=== PATIENT | male | born 2000 | race Caucasian/White ===

== ENCOUNTER 2022-05-28 19:20 | Observation (INO) ==
[2022-05-28 20:36] LABS: Basophils # (auto) 0.07 K/uL (0-0.2); Basophils % (auto) 0.6 %; Eosinophils # (auto) 0.17 K/uL (0-0.50); Eosinophils % (auto) 1.6 %; Hematocrit (blood only) 36.1 % (40.1-51.0); Immature Granulocytes # (auto) 0.06 K/uL (0.00-0.02); Immature Granulocytes % (auto) 0.5 %; Lymphocytes % (auto) 18.3 %; Mean Corpuscular Hemoglobin 30.8 pg (25.0-34.0); Mean Corpuscular Hgb Conc 33.2 g/dL (32.0-36.0); Mean Corpuscular Volume 92.6 fL (80.0-100.0); Mean Platelet Volume 9.7 fL (9.4-12.4); Monocytes # (auto) 1.33 K/uL (0.24-0.82); Monocytes % (auto) 12.2 %; Neutrophils # (auto) 7.29 K/uL (1.4-6.5); Neutrophils % (auto) 66.8 %; Platelet Count 530 K/uL (130-400); RDW Coefficient of Variation 13.3 % (11.5-14.5); RDW Standard Deviation 45.1 fL (36.4-46.3); White Blood Count 10.92 K/ul (4.8-10.8)
[2022-05-28 21:06] LABS: Potassium 4.1 mmol/L (3.5-5.1)
[2022-05-28 21:09] LABS: Alanine Aminotransferase 69 U/L (7-52); Albumin Globulin Ratio 1.6 (0.9-2); Albumin Level 4.6 gm/dl (3.4-5.0); Alkaline Phosphatase 52 U/L (34-104); Anion Gap 7 (3-11); BUN Creatinine Ratio 39.1 (10-20); Bilirubin,Total 1.7 mg/dl (0.2-1.0); Blood Urea Nitrogen 25 mg/dl (6-23); Calcium 9.8 mg/dl (8.5-10.1); Carbon Dioxide 29 mmol/L (21-32); Chloride 100 mmol/L (98-107); Creatinine Clr Calc Pharmacy 158.9 ml/min; Est GFR (African American) > 150.0 ml/min; Est GFR (Non-African American) 141.9 ml/min; Globulin 2.9 gm/dl (2.5-4.0); Glucose 86 mg/dl (70-99(Fasting)); Lipase 16 U/L (11-82); Sodium 136 mmol/L (136-145); Total Protein 7.5 gm/dl (6.0-8.3)
[2022-05-28] MEDS ORDERED: KETOROLAC TROMETHAMINE 15 MG/ML VIAL IV ONE (22:50)
--- NOTE | 2022-05-28 23:04 | Emergency Department Note ---
Impression & Plan Hemoperitoneum, Abdominal pain, S/P appendectomy ED Provider Note CHIEF COMPLAINT: Abdominal pain HISTORY OF PRESENT ILLNESS: Bala Browning is a 21 year old male with history recent appendectomy with Dr. Quiroz in [place] who presents to the Emergency Department for evaluation of intermittent pains to his bilateral lower abdominal quadrant, R>L, which has been worsening over the past 5 days. Currently, he rates his discomfort as a 3/10 which intermittently becomes much more severe, especially when sitting up and attempting to walk. He also notes increased pain after eating as well. The patient has been taking ibuprofen with little improvement of his symptoms. He was prescribed hydrocodone but has not been taking this as it makes him feel sick to his stomach. The patient does state that he has felt nauseous x 2 days, no vomiting. He has continued to have normal bowel movements but does state that he has been more "gassy". The patient otherwise denies fevers/chills, chest pain, or respiratory difficulties. No urinary symptoms. As the patient was concerned for his worsening pains, he presents to the ED for more immediate evaluation this evening. REVIEW OF SYSTEMS: 10 systems were reviewed and were negative unless otherwise stated in HPI as above PHYSICAL EXAM: VITALS: Vitals are noted on the nurse's note and reviewed by myself. Vital signs stable. General: Resting in bed, appears uncomfortable but no acute distress HEENT: Normocephalic, PERRL, EOMI, mucous membranes moist, oropharynx clear without erythema, edema or exudates Neck: Supple, non-tender ROM intact without pain Resp: Good inspiratory effort on room air, lung sounds clear bilaterally CV: Regular rate and rhythm, normal S1-S2, peripheral pulses palpated Back: No tenderness to palpation Abd: Soft, non-distended, endoscopic sites appear to be healing well without surrounding erythema, edema or abnormal drainage. Exquisitely tender over the bilateral lower abdominal quadrants and suprapubic region with guarding, no rebound or rigidity MSK: Moving all extremities, though movement of his legs worsens his abdominal pain Integumentary: Appears mildly pale but otherwise warm and dry, no appreciable rash Neuro: Awake, alert and oriented x 3, interacting and answering questions appropriately Differential diagnosis includes postoperative pain, abscess, bowel perforation, bowel obstruction, surgical complication, among others were considered. EMERGENCY DEPARTMENT COURSE: Physical exam and history were performed. Nursing triage notes, EMR, and medication list were personally reviewed. Patient is a 21 year old male with history recent appendectomy with Dr. Quiroz in [place] who presents to the Emergency Department for evaluation of intermittent pains to his bilateral lower abdominal quadrant, R>L, which has been worsening over the past 5 days. Additional history as described above. See physical exam as noted above. The patient was offered medication. IV access was established and he was given Toradol 15 mg. Labs were obtained and reviewed by myself as below. Of note, leukocytosis with a WBC of 10.92. Mild anemia with hemoglobin 12.0. Electrolytes WNL. Renal ind ices stable. LFTs nondiagnostic. Lipase WNL. Urinalysis was obtained and showed trace protein, trace blood, trace leukocyte esterase, 1030 WBCs. Likely contaminated with >[address] abdomen/pelvis was obtained and reviewed by radiologist myself as below. There was moderate amount of complex fluid seen within the abdomen and pelvis concerning for hemoperitoneum. Trace pneumoperitoneum within the upper abdomen, likely due to recent appendectomy. Asymmetric thickening within the left anterolateral abdominal wall with a heterogeneous collection measuring 4.2 x 1.8 cm favoring an intramuscular hematoma. I did call and speak with Tio Álvarez PA-C of general surgery regarding the patient's case. After he evaluated the patient at bedside, he plans to admit him for further evaluation and management as necessary. Please see his dictation for additional plan and disposition thereafter. The patient verbalizes understanding and agreement with the treatment plan as above. The chart was completed utilizing [employer] Speech Voice Recognition Software. Grammatical errors, random word insertions, pronoun errors, and incomplete sentences are an occasional consequence of this system due to software limitations, ambient noise, and hardware issues. Any formal questions or concerns about the content, text, or information contained within the body of this dictation should be directly addressed to the provider for clarification. Past Med/Surg History Medical History Anxiety Depression Surgical History (Updated 05/29/22 @ 08:09 by Sheila Garcia PA-C) Hx of appendectomy Social History Smoking Status: Current every day smoker Tobacco Type: E-cigarettes / Vaping Second Hand Exposure: No; Do You Dip or Chew Tobacco: No; Tobacco Cessation Education Requested by Patient: No Hx Alcohol Use: No Hx Substance Use: No Preferred Language: Indian Communication Ability: Effective Mental Health Tech Required: No Beliefs That Will Affect Care: None Current Living Situation: Family Other Information That Helps Us Care for You: No Feels Safe at Home: Yes Safety Concerns: Feels Safe At This Time Assistive Devices: None Allergies Allergies Allergy/AdvReac Type Severity Reaction Status Date / Time No Known Allergies Allergy Unverified 05/28/22 23:36 Home Meds Home Medications Medication Instructions Recorded Confirmed amoxicillin 875 mg-potassium 1 tab PO Q12 05/28/22 05/28/22 clavulanate 125 mg tablet citalopram 20 mg tablet 20 mg PO QAM 05/28/22 05/28/22 trazodone 50 mg tablet 50 mg PO HS 05/28/22 05/28/22 Results & Data (ED) Vital Signs Vital Signs - 24 hr 05/28/22 19:34 05/28/22 22:20 05/28/22 22:20 Temperature 36.6 C 36.5 C Temperature Source Temporal Artery Scan Oral Pulse Rate 126 H 89 Pulse Rate [Apical] 88 Pulse Rate from SpO2 Sensor Pulse Rhythm Regular Pulse Rhythm [Apical] Regular Pulse Strength [Apical] Normal Respiratory Rate 18 14 14 Respiratory Effort / Characteristics Non-Labored Spontaneous Non-Labored Respiratory Depth Normal Normal Respiratory Pattern Regular Blood Pressure 124/75 Blood Pressure [Left Arm] 113/64 Blood Pressure Mean 91 Blood Pressure Mean [Left Arm] 80 Blood Pressure Position [Left Arm] Lying Pulse Oximetry 97 99 100 Oxygen Delivery Method Room Air Room Air Room Air Sepsis Recent Fever Within 48 Hours No Sepsis New/Unexplained Change in Mental Status No Sepsis Action Taken by Nursing No Action Required 05/28/22 22:15 05/28/22 22:20 05/28/22 22:30 Temperature Temperature Source Pulse Rate 87 79 Pulse Rate [Apical] Pulse Rate from SpO2 Sensor 86 79 Pulse Rhythm Pulse Rhythm [Apical] Pulse Strength [Apical] Respiratory Rate 17 25 H Respiratory Effort / Characteristics Respiratory Depth Respiratory Pattern Blood Pressure 113/64 Blood Pressure [Left Arm] Blood Pressure Mean 80 Blood Pressure Mean [Left Arm] Blood Pressure Position [Left Arm] Pulse Oximetry 97 98 Oxygen Delivery Method Sepsis Recent Fever Within 48 Hours Sepsis New/Unexplained Change in Mental Status Sepsis Action Taken by Nursing 05/28/22 22:30 05/28/22 22:40 05/28/22 22:50 Temperature Temperature Source Pulse Rate 87 93 H 95 H Pulse Rate [Apical] Pulse Rate from SpO2 Sensor 80 97 H 91 H Pulse Rhythm Pulse Rhythm [Apical] Pulse Strength [Apical] Respiratory Rate 17 18 20 Respiratory Effort / Characteristics Respiratory Depth Respiratory Pattern Blood Pressure Blood Pressure [Left Arm] Blood Pressure Mean Blood Pressure Mean [Left Arm] Blood Pressure Position [Left Arm] Pulse Oximetry 100 97 97 Oxygen Delivery Method Sepsis Recent Fever Within 48 Hours Sepsis New/Unexplained Change in Mental Status Sepsis Action Taken by Nursing 05/29/22 01:16 05/28/22 23:00 05/28/22 23:00 Temperature 37.3 C Temperature Source Oral Pulse Rate 84 Pulse Rate [Apical] Pulse Rate from SpO2 Sensor 82 Pulse Rhythm Pulse Rhythm [Apical] Pulse Strength [Apical] Respiratory Rate 20 Respiratory Effort / Characteristics Respiratory Depth Respiratory Pattern Blood Pressure 120/76 Blood Pressure [Left Arm] Blood Pressure Mean 90 Blood Pressure Mean [Left Arm] Blood Pressure Position [Left Arm] Pulse Oximetry 100 Oxygen Delivery Method Sepsis Recent Fever Within 48 Hours Sepsis New/Unexplained Change in Mental Status Sepsis Action Taken by Nursing 05/28/22 23:10 05/28/22 23:20 05/28/22 23:30 Temperature Temperature Source Pulse Rate 89 75 Pulse Rate [Apical] Pulse Rate from SpO2 Sensor 87 77 Pulse Rhythm Pulse Rhythm [Apical] Pulse Strength [Apical] Respiratory Rate 17 22 Respiratory Effort / Characteristics Respiratory Depth Respiratory Pattern Blood Pressure 122/77 Blood Pressure [Left Arm] Blood Pressure Mean 92 Blood Pressure Mean [Left Arm] Blood Pressure Position [Left Arm] Pulse Oximetry 98 99 Oxygen Delivery Method Sepsis Recent Fever Within 48 Hours Sepsis New/Unexplained Change in Mental Status Sepsis Action Taken by Nursing 05/28/22 23:30 05/28/22 23:40 05/28/22 23:50 Temperature Temperature Source Pulse Rate 84 83 99 H Pulse Rate [Apical] Pulse Rate from SpO2 Sensor 81 83 94 H Pulse Rhythm Pulse Rhythm [Apical] Pulse Strength [Apical] Respiratory Rate 16 17 16 Respiratory Effort / Characteristics Respiratory Depth Respiratory Pattern Blood Pressure Blood Pressure [Left Arm] Blood Pressure Mean Blood Pressure Mean [Left Arm] Blood Pressure Position [Left Arm] Pulse Oximetry 99 98 97 Oxygen Delivery Method Sepsis Recent Fever Within 48 Hours Sepsis New/Unexplained Change in Mental Status Sepsis Action Taken by Nursing 05/29/22 00:00 05/29/22 00:00 05/29/22 00:41 Temperature Temperature Source Pulse Rate 88 79 Pulse Rate [Apical] Pulse Rate from SpO2 Sensor 77 76 Pulse Rhythm Pulse Rhythm [Apical] Pulse Strength [Apical] Respiratory Rate 19 22 Respiratory Effort / Characteristics Respiratory Depth Respiratory Pattern Blood Pressure 114/62 Blood Pressure [Left Arm] Blood Pressure Mean 79 Blood Pressure Mean [Left Arm] Blood Pressure Position [Left Arm] Pulse Oximetry 97 98 Oxygen Delivery Method Sepsis Recent Fever Within 48 Hours Sepsis New/Unexplained Change in Mental Status Sepsis Action Taken by Nursing 05/29/22 00:41 05/29/22 00:50 05/29/22 01:13 Temperature Temperature Source Pulse Rate 80 Pulse Rate [Apical] Pulse Rate from SpO2 Sensor 75 Pulse Rhythm Pulse Rhythm [Apical] Pulse Strength [Apical] Respiratory Rate 22 16 Respiratory Effort / Characteristics Respiratory Depth Respiratory Pattern Blood Pressure 117/66 Blood Pressure [Left Arm] Blood Pressure Mean 83 Blood Pressure Mean [Left Arm] Blood Pressure Position [Left Arm] Pulse Oximetry 98 Oxygen Delivery Method Sepsis Recent Fever Within 48 Hours Sepsis New/Unexplained Change in Mental Status Sepsis Action Taken by Nursing 05/29/22 01:20 05/29/22 01:30 05/29/22 01:30 Temperature Temperature Source Pulse Rate 73 76 Pulse Rate [Apical] Pulse Rate from SpO2 Sensor 74 76 Pulse Rhythm Pulse Rhythm [Apical] Pulse Strength [Apical] Respiratory Rate 23 19 Respiratory Effort / Characteristics Respiratory Depth Respiratory Pattern Blood Pressure 123/67 Blood Pressure [Left Arm] Blood Pressure Mean 85 Blood Pressure Mean [Left Arm] Blood Pressure Position [Left Arm] Pulse Oximetry 99 99 Oxygen Delivery Method Sepsis Recent Fever Within 48 Hours Sepsis New/Unexplained Change in Mental Status Sepsis Action Taken by Nursing 05/29/22 01:40 05/29/22 01:50 05/29/22 02:00 Temperature Temperature Source Pulse Rate 81 77 Pulse Rate [Apical] Pulse Rate from SpO2 Sensor 80 77 Pulse Rhythm Pulse Rhythm [Apical] Pulse Strength [Apical] Respiratory Rate 23 23 Respiratory Effort / Characteristics Respiratory Depth Respiratory Pattern Blood Pressure 120/70 Blood Pressure [Left Arm] Blood Pressure Mean 86 Blood Pressure Mean [Left Arm] Blood Pressure Position [Left Arm] Pulse Oximetry 98 97 Oxygen Delivery Method Sepsis Recent Fever Within 48 Hours Sepsis New/Unexplained Change in Mental Status Sepsis Action Taken by Nursing 05/29/22 02:00 05/29/22 02:10 05/29/22 02:20 Temperature Temperature Source Pulse Rate 70 73 74 Pulse Rate [Apical] Pulse Rate from SpO2 Sensor 68 73 74 Pulse Rhythm Pulse Rhythm [Apical] Pulse Strength [Apical] Respiratory Rate 18 18 20 Respiratory Effort / Characteristics Respiratory Depth Respiratory Pattern Blood Pressure Blood Pressure [Left Arm] Blood Pressure Mean Blood Pressure Mean [Left Arm] Blood Pressure Position [Left Arm] Pulse Oximetry 96 96 95 Oxygen Delivery Method Sepsis Recent Fever Within 48 Hours Sepsis New/Unexplained Change in Mental Status Sepsis Action Taken by Nursing 05/29/22 02:30 05/29/22 02:30 05/29/22 02:40 Temperature Temperature Source Pulse Rate 98 H 72 Pulse Rate [Apical] Pulse Rate from SpO2 Sensor 92 H 71 Pulse Rhythm Pulse Rhythm [Apical] Pulse Strength [Apical] Respiratory Rate 22 15 Respiratory Effort / Characteristics Respiratory Depth Respiratory Pattern Blood Pressure 110/79 Blood Pressure [Left Arm] Blood Pressure Mean 89 Blood Pressure Mean [Left Arm] Blood Pressure Position [Left Arm] Pulse Oximetry 98 97 Oxygen Delivery Method Sepsis Recent Fever Within 48 Hours Sepsis New/Unexplained Change in Mental Status Sepsis Action Taken by Nursing 05/29/22 02:50 Temperature Temperature Source Pulse Rate 90 Pulse Rate [Apical] Pulse Rate from SpO2 Sensor 88 Pulse Rhythm Pulse Rhythm [Apical] Pulse Strength [Apical] Respiratory Rate 20 Respiratory Effort / Characteristics Respiratory Depth Respiratory Pattern Blood Pressure Blood Pressure [Left Arm] Blood Pressure Mean Blood Pressure Mean [Left Arm] Blood Pressure Position [Left Arm] Pulse Oximetry 96 Oxygen Delivery Method Sepsis Recent Fever Within 48 Hours Sepsis New/Unexplained Change in Mental Status Sepsis Action Taken by Nursing Laboratory Data Result diagrams: 05/29/22 05:59 05/29/22 05:59 Lab Results 05/28/22 05/28/22 05/29/22 Range/Units 20:23 20:23 01:00 WBC 10.92 H (4.8-10.8) K/ul RBC 3.90 L (4.63-6.08) M/uL Hgb 12.0 L (14.0-18.0) g/dl Hct 36.1 L (40.1-51.0) % MCV 92.6 (80.0-100.0) fL MCH 30.8 (25.0-34.0) pg MCHC 33.2 (32.0-36.0) g/dL RDW Std Deviation 45.1 (36.4-46.3) fL RDW Coeff of Sasha 13.3 (11.5-14.5) % Plt Count 530 H (130-400) K/uL MPV 9.7 (9.4-12.4) fL Immature Gran % (Auto) 0.5 % Neut % (Auto) 66.8 % Lymph % (Auto) 18.3 % [place] % (Auto) 12.2 % Eos % (Auto) 1.6 % Baso % (Auto) 0.6 % Neut # (Auto) 7.29 H (1.4-6.5) K/uL Lymph # (Auto) 2.00 (1.2-3.4) K/uL [place] # (Auto) 1.33 H (0.24-0.82) K/uL Eos # (Auto) 0.17 (0-0.50) K/uL Baso # (Auto) 0.07 (0-0.2) K/uL Immature Gran # (Auto) 0.06 H (0.00-0.02) K/uL Sodium 136 (136-145) mmol/L Potassium 4.1 (3.5-5.1) mmol/L Chloride 100 (98-107) mmol/L Carbon Dioxide 29 (21-32) mmol/L Anion Gap 7 (3-11) BUN 25 H (6-23) mg/dl Creatinine 0.64 (0.6-1.4) mg/dl Est Cr Clr Drug Dosing 158.9 ml/min Est GFR ( Amer) > 150.0 ml/min Est GFR (Non-Af Amer) 141.9 ml/min BUN/Creatinine Ratio 39.1 H (10-20) Glucose 86 (70-99(Fasting)) mg/dl Calcium 9.8 (8.5-10.1) mg/dl Total Bilirubin 1.7 H (0.2-1.0) mg/dl AST (13-39) U/L ALT 69 H (7-52) U/L Alkaline Phosphatase 52 (34-104) U/L Total Protein 7.5 (6.0-8.3) gm/dl Albumin 4.6 (3.4-5.0) gm/dl Globulin 2.9 (2.5-4.0) gm/dl Albumin/Globulin Ratio 1.6 (0.9-2) Lipase 16 (11-82) U/L Urine Color Dark Yellow Urine Appearance Clear (Clear) Urine pH 5.0 (4.5-7.5) Ur Specific [place] > 1.045 H (1.000-1.030) Urine Protein Trace H (Negative) Urine Glucose (UA) Negative (Negative) Urine Ketones Negative (Negative) Urine Blood Trace H (Negative) Urine Nitrite Negative (Negative) Urine Bilirubin Negative (Negative) Urine Urobilinogen Negative (Negative) Ur Leukocyte Esterase Trace H (Negative) Urine WBC (Auto) 10-30 H (0-5) /hpf Urine RBC (Auto) 0-4 (0-4) /hpf U Hyaline Cast (Auto) 5-10 H (0-5) /lpf U Epithel Cells (Auto) >30 H (0-5) /lpf Urine Bacteria (Auto) Negative (Negative) Ur Renal Epithelial Cell 0-5 (0-5) /lpf Administered Medications Citalopram Hydrobromide (Citalopram 20 Mg Tab) 20 mg PO QAM JORGE Stop: 06/28/22 08:59 Last Admin: 05/29/22 07:44 Dose: 20 mg Documented By: DAVID Lactated Ringer's (Lr) 1,000 mls @ 100 mls/hr IV .Q10H JORGE Stop: 06/28/22 02:59 Last Infusion: 05/29/22 07:45 Dose: 0 mls/hr Documented By: Admin: 05/29/22 05:16 Dose: 100 mls/hr Documented By: Piperacillin Sod/Tazobactam (Sod 3.375 gm/ Dextrose) 115 mls @ 28.75 mls/hr IV Q8H JORGE; Protocol Stop: 06/08/22 07:59 Last Admin: 05/29/22 07:44 Dose: 28.8 mls/hr Documented By: [facility] Morphine Sulfate (Morphine Sulfate 4 Mg/Ml 1 Ml Carp\\Vial) 3 mg IV Q3H PRN PRN Reason: Pain Stop: 06/12/22 02:48 Last Admin: 05/29/22 05:36 Dose: 3 mg Documented By: AB Discontinued Medications Piperacillin Sod/Tazobactam (Sod 3.375 gm/ Dextrose) 100 ml in 115 mls @ 230 mls/hr IV 0300 ONE Stop: 05/29/22 03:29 Last Infusion: 05/29/22 04:48 Dose: 0 mls/hr Documented By: Admin: 05/29/22 04:02 Dose: 230 mls/hr Documented By: LIVIER Ioversol (Optiray 300 100ml) 93 ml IV ONCE ONE Stop: 05/29/22 00:30 Last Admin: 05/29/22 00:30 Dose: 93 ml Documented By: DAISY Ketorolac Tromethamine (Ketorolac Tromethamine 15 Mg/Ml Vial) 15 mg IV NOW ONE Stop: 05/28/22 22:51 Last Admin: 05/28/22 23:27 Dose: 15 mg Documented By: LIVIER Imaging Data Radiologist's Impression: Abdomen/Pelvis CT 05/28/22 21:[address] WITH IV AND ORAL CONTRAST CT DOSE: 283.34 mGy.cm HISTORY: Status post appendectomy. Continued right lower quadrant pain. TECHNIQUE: Multiaxial CT images of the abdomen and pelvis were performed following the use of intravenous and oral contrast. A dose lowering technique was utilized adhering to the principles of ALARA. COMPARISON STUDY: None. FINDINGS: Postoperative changes consistent with recent appendectomy. There is a moderate amount of complex fluid seen within the abdomen and pelvis concerning for hemoperitoneum. No active extravasation identified at this time. Asymmetric thickening of the left anterolateral abdominal wall likely representing intramuscular hematoma with a heterogeneous collection measuring approximately 4.2 x 1.8 cm. This is best seen image 251. The lung bases are clear. There is trace pneumoperitoneum within the upper abdomen. No fractures within the visualized osseous structures. The bladder is unremarkable. The no bowel wall thickening or obstruction. The liver, spleen, adrenal glands, gallbladder, k idneys, and pancreas are unremarkable. The main portal vein is patent. Normal caliber abdominal aorta. No retroperitoneal lymphadenopathy. IMPRESSION: 1. Moderate amount of complex fluid seen within the abdomen and pelvis concerning for hemoperitoneum. No evidence fracture or arterial extravasation at this time. Surgical consultation recommended. 2. Trace pneumoperitoneum within the upper abdomen. This is likely due to the recent appendectomy. 3. Asymmetric thickening within the left anterolateral abdominal wall with a heterogeneous collection measuring approximate 4.2 x 1.8 cm. This favors an intramuscular hematoma. 4. These findings were called/faxed to the emergency department following dictation. ACT 112: Negative or not required by law. Electronically signed by: Pj Purdy M.D. 05/29/2022 7:19 AM Discharge Plan Visit Data Chief Complaint: Abdominal Pain Stated Complaint: ABDOMINAL PAIN ED Provider: Beatris Do ED Midlevel Provider: Sheila Garcia Discharge Problem: Hemoperitoneum, Abdominal pain, S/P appendectomy Patient Disposition: Admitted As Inpatient Discharge Instructions Interventions: ED Discharge Assessment Last Done: 05/29/22 04:46
[2022-05-29] MEDS ORDERED: OPTIRAY 300 100mL IV ONE (00:29)
[2022-05-29 01:24] LABS: Appearance Urine Clear (Clear); Bacteria Urine Automated Negative (Negative); Bilirubin Urine Negative (Negative); Blood Urine Trace (Negative); Color Urine Dark Yellow; Epithelial Cell Urine Auto >30 /lpf (0-5); Glucose Urine UA Negative (Negative); Ketones Urine Negative (Negative); Leukocyte Esterase Urine Trace (Negative); Nitrite Urine Negative (Negative); Protein Urine Trace (Negative); RBC Urine Automated 0-4 /hpf (0-4); Specific Gravity Urine > 1.045 (1.000-1.030); Urobilinogen Urine Negative (Negative)
[2022-05-29 01:56] LABS: Renal Epithelial Cells Urine 0-5 /lpf (0-5)
[2022-05-29] MEDS ORDERED: ONDANSETRON INJ 2 MG/ML 2 ML VIAL IV PRN (02:49)
[2022-05-29] MEDS ORDERED: PIPERACILLIN/TAZOBACTAM 3.375 GM in DEXTROSE 5% 100 ML/100 ML BAG IV ONE (03:00)
--- NOTE | 2022-05-29 03:02 | History & Physical Report ---
Date of Service May 29, 2022 Assessment & Plan (1) Abdominal pain: Plan: Due to the patient's clinical presentation and imaging findings we will proceed as followed: Will admit him to the hospital We will keep him n.p.o. for the present time We will provide hydration with IV fluids Analgesics will be provided Antiemetics will be provided As the patient has several doses of Augmentin to take we will place him on antibiotics in form of intravenous Zosyn I did discuss with the patient the findings of his CAT scan. The fluid noted in his pelvis could be causing abdominal irritation causing his pain. As noted by the CT there is no definite loculations and this is not overly convincing for an abscess at this time. There is an ill-defined density at the staple line near his appendix. This raises the concern of whether or not patient has stump appendagitis. We will treat as noted above for this condition. In addition the CT scan was read by the [facility] service and we will review the CT scan with our in-house radiologist tomorrow morning. Finally, we will attempt to obtain the patient's pathology report from [facility] to see if there is any findings on the pathology that could explain his symptoms. Additional recommendations be forthcoming based on his clinical course as it unfolds Will use SCDs for DVT prevention, no chemical means until certain he will not require any further procedures He will be a level 1 full code History of Present Illness Chief Complaint: Abdominal pain Primary Care Provider: Lanre Conde This is a 21-year-old male who underwent a laparoscopic appendectomy [facility] in [place], [place]. The patient notes that his surgery was approximately 1-1/2 weeks ago on May 19. Patient says that his initial surgical course was uneventful and he was discharged home. It is noteworthy mention that the patient was discharged home on oral Augmentin and he continues to take this medication and still has several doses to take. Patient notes that he has had continued generalized abdominal pain since his surgery. He says he was seen by his surgeon and no specific interventions were undertaken. He was told by the surgeon that one of the stitches may have been impinging on a nerve. He continued to have persistent pain so approximately 2 days ago the patient was seen in the emergency department at [facility]. According to the patient and his mother no interventions were undertaken and no x-rays were perfo rmed. The patient continued to have persistent abdominal pain so he presented to the emergency department at [facility] this evening. Since surgery, the patient denies any nausea or vomiting. He notes that he has been tolerating a diet. He notes that his bowels have moved since his surgery. He does not note any modifying factors of the pain other than that is worse with certain movements. He does not note any radiation of the pain. In the emergency department [facility] the patient has had labs and imaging which I independent reviewed. A CBC showed a white blood cell count of 10.9. Hemoglobin and hematocrit were 12.0 and 36.1. Platelet count was 530,000. Chemistry profile showed sodium, potassium, and creatinine were normal. His BUN had a slight elevation at 25. His total bilirubin was elevated 1.7 and his ALT was elevated at 69 but alkaline phosphatase was normal. There is no elevation of his lipase. And AST was unable to be performed. Urinalysis showed 10-30 white blood cells per high-power field with no bacteria and trace leukocyte Estrace. No nitrites were noted on the study. A CT scan of the abdomen pelvis was performed that showed A large amount of free fluid layering in the pelvis with an ill-defined density at the region of the appendectomy suture line. There is no definite loculated collection. There is no contrast extravasation on the study. There was a locule of gas in the olivier hepatitis with no bowel obstruction. At the time of my interview the patient was initially sleeping. He was in no distress but did have continued abdominal pain. Allergies Allergy/AdvReac Type Severity Reaction Status Date / Time No Known Allergies Allergy Unverified 05/28/22 23:36 Home Medications Medication Instructions Recorded Confirmed Type amoxicillin 875 mg-potassium 1 tab PO Q12 05/28/22 05/28/22 History clavulanate 125 mg tablet citalopram 20 mg tablet 20 mg PO QAM 05/28/22 05/28/22 History trazodone 50 mg tablet 50 mg PO HS 05/28/22 05/28/22 History Past Med/Surg History Social History Smoking Status: Current every day smoker Tobacco Type: E-cigarettes / Vaping Second Hand Exposure: No; Do You Dip or Chew Tobacco: No; Tobacco Cessation Education Requested by Patient: No Hx Alcohol Use: No Hx Substance Use: No Preferred Language: Hungarian Communication Ability: Effective Cook Cashier Food Prep Required: No Beliefs That Will Affect Care: None Current Living Situation: Family Other Information That Helps Us Care for You: No Feels Safe at Home: Yes Safety Concerns: Feels Safe At This Time Assistive Devices: None Review of Systems Constitutional: no fever and no chills Eyes: no eye pain Ear, Nose, Mouth, Throat: no ear pain Respiratory: no cough and no dyspnea Cardiovascular: no chest pain Gastrointestinal: + abdominal pain; no nausea and no vomiting Genitourinary: no dysuria Musculoskeletal: no back pain Integumentary: no rash Neurologic: no localized weakness Physical Exam Constitutional: + thin; no acute distress Eyes: no conjunctival abnormality ENMT: Ears: no hearing impairment and no external ear abnormality Mouth: no oropharynx abnormality Neck: trachea midline Respiratory: normal respiratory effort; no respiratory distress and no labored breathing Cardiovascular: Rate/Rhythm: regular rate and regular rhythm Gastrointestinal (Abdomen): Abdomen is soft, nonrigid, and nondistended. Bowel sounds are present. Patient had 3 incisions from a apparent laparoscopic appendectomy which were all well approximated without signs of infection. Patient had generalized tenderness with palpation but this appeared to be greatest on the left side of his abdomen. No rebound tenderness or guarding was noted at the time of my exam. Musculoskeletal: No calf tenderness Skin: no rashes Neurologic: moves all extremities Psychiatric: Orientation: alert and oriented x 3 Affect: + flat affect Results & Data Results & Data ([facility]) Vital Signs (Past 12 Hours) Vital Signs Temp Pulse Pulse Resp BP BP Pulse Ox 05/29/22 02:30 98 H 22 98 05/29/22 02:30 110/79 05/29/22 02:20 74 20 95 05/29/22 02:10 73 18 96 05/29/22 02:00 70 18 96 05/29/22 02:00 120/70 05/29/22 01:50 77 23 97 05/29/22 01:40 81 23 98 05/29/22 01:30 76 19 99 05/29/22 01:30 123/67 05/29/22 01:20 73 23 99 05/29/22 01:13 16 05/29/22 00:50 80 22 98 05/29/22 00:41 117/66 05/29/22 00:41 79 22 98 05/29/22 00:00 88 19 97 05/29/22 00:00 114/62 05/28/22 23:50 99 H 16 97 05/28/22 23:40 83 17 98 05/28/22 23:30 84 16 99 05/28/22 23:30 122/77 05/28/22 23:20 75 22 99 05/28/22 23:10 89 17 98 05/28/22 23:00 84 20 100 05/28/22 23:00 120/76 05/29/22 01:16 37.3 C 05/28/22 22:50 95 H 20 97 05/28/22 22:40 93 H 18 97 05/28/22 22:30 87 17 100 05/28/22 22:30 113/64 05/28/22 22:20 79 25 H 98 05/28/22 22:15 87 17 97 05/28/22 22:20 89 14 100 05/28/22 22:20 36.5 C 88 14 113/64 99 05/28/22 19:34 36.6 C 126 H 18 124/75 97 O2 Del Method 05/29/22 02:30 05/29/22 02:30 05/29/22 02:20 05/29/22 02:10 05/29/22 02:00 05/29/22 02:00 05/29/22 01:50 05/29/22 01:40 05/29/22 01:30 05/29/22 01:30 05/29/22 01:20 05/29/22 01:13 05/29/22 00:50 05/29/22 00:41 05/29/22 00:41 05/29/22 00:00 05/29/22 00:00 05/28/22 23:50 05/28/22 23:40 05/28/22 23:30 05/28/22 23:30 05/28/22 23:20 05/28/22 23:10 05/28/22 23:00 05/28/22 23:00 05/29/22 01:16 05/28/22 22:50 05/28/22 22:40 05/28/22 22:30 05/28/22 22:30 05/28/22 22:20 05/28/22 22:15 05/28/22 22:20 Room Air 05/28/22 22:20 Room Air 05/28/22 19:34 Room Air Code Status & VTE Plan VTE Prophylaxis Plan VTE Prophylaxis will be ordered: Yes Supervising Physician Co-Signing Physician Notes Patient's present symptoms apparently were present prior to his appendectomy He states that they had a CAT scan which we do not have the results that read question suspicious for appendicitis We do not have the path report There is no family history of an irritable bowel syndrome and the patient does not have any history of diarrhea We will try to get the records from [facility] we will start the patient on some clear liquid diet keep him here to make sure that he can tolerate an oral intake and is comfortable before discharging At this time there is no indication for any surgery PG Care Time/CCT Total # of Minutes Spent Total Time Spent with Patient: Total time spent is greater than 50% in coordination of care (as documented) at patient's floor/unit and/or counseling patient: Coding Level of Care Code INT OBSERVATION CARE 70M LVL 3 Diagnoses Abdominal pain R10.9
[2022-05-29] MEDS: LACTATED RINGER'S 1,000 ML IV SCH ×2 (05:16→18:08)
[2022-05-29] MEDS: MoRPHine SULFATE 4 MG/ML 1 ML CARP\\VIAL IV PRN ×5 (05:36→22:48)
[2022-05-29 06:20] LABS: Basophils # (auto) 0.05 K/uL (0-0.2); Basophils % (auto) 0.7 %; Eosinophils # (auto) 0.13 K/uL (0-0.50); Eosinophils % (auto) 1.8 %; Hematocrit (blood only) 31.3 % (40.1-51.0); Hemoglobin 10.6 g/dl (14.0-18.0); Immature Granulocytes # (auto) 0.03 K/uL (0.00-0.02); Immature Granulocytes % (auto) 0.4 %; Lymphocytes # (auto) 1.77 K/uL (1.2-3.4); Lymphocytes % (auto) 24.1 %; Mean Corpuscular Hemoglobin 30.7 pg (25.0-34.0); Mean Corpuscular Hgb Conc 33.9 g/dL (32.0-36.0); Mean Corpuscular Volume 90.7 fL (80.0-100.0); Mean Platelet Volume 9.6 fL (9.4-12.4); Monocytes # (auto) 1.04 K/uL (0.24-0.82); Monocytes % (auto) 14.2 %; Neutrophils # (auto) 4.31 K/uL (1.4-6.5); Neutrophils % (auto) 58.8 %; Platelet Count 446 K/uL (130-400); RDW Coefficient of Variation 13.2 % (11.5-14.5); RDW Standard Deviation 43.9 fL (36.4-46.3); Red Blood Count 3.45 M/uL (4.63-6.08); White Blood Count 7.33 K/ul (4.8-10.8)
[2022-05-29 07:00] LABS: Anion Gap 6 (3-11); BUN Creatinine Ratio 38.3 (10-20); Blood Urea Nitrogen 23 mg/dl (6-23); Calcium 9.3 mg/dl (8.5-10.1); Carbon Dioxide 29 mmol/L (21-32); Chloride 99 mmol/L (98-107); Creatinine Clr Calc Pharmacy 168.3 ml/min; Est GFR (African American) > 150.0 ml/min; Est GFR (Non-African American) 145.8 ml/min; Glucose 89 mg/dl (70-99(Fasting)); Potassium 3.6 mmol/L (3.5-5.1); Sodium 134 mmol/L (136-145)
--- NOTE | 2022-05-29 07:21 | CT Scan Report ---
ABDOMEN AND PELVIS CT WITH IV AND ORAL CONTRAST CT DOSE: 283.34 mGy.cm HISTORY: Status post appendectomy. Continued right lower quadrant pain. TECHNIQUE: Multiaxial CT images of the abdomen and pelvis were performed following the use of intrave nous and oral contrast. A dose lowering technique was utilized adhering to the principles of ALARA. COMPARISON STUDY: None. FINDINGS: Postoperative changes consistent with recent appendectomy. There is a moderate amount of co mplex fluid seen within the abdomen and pelvis concerning for hemoperitoneum. No active extravasation identified at this time. Asymmetric thickening of the left anterolateral abdominal wall likely repre senting intramuscular hematoma with a heterogeneous collection measuring approximately 4.2 x 1.8 cm. This is best seen image 251. The lung bases are clear. There is trace pneumoperitoneum within the upp er abdomen. No fractures within the visualized osseous structures. The bladder is unremarkable. The n o bowel wall thickening or obstruction. The liver, spleen, adrenal glands, gallbladder, kidneys, and pancreas are unremarkable. The main portal vein is patent. Normal caliber abdominal aorta. No retrope ritoneal lymphadenopathy. IMPRESSION: 1. Moderate amount of complex fluid seen within the abdomen and pelvis concerning for hemoperitoneum. No evidence fracture or arterial extravasation at this time. Surgical consultation recommended. 2. Trace pneumoperitoneum within the upper abdomen. This is likely due to the recent appendectomy. 3. Asymmetric thickening within the left anterolateral abdominal wall with a heterogeneous collection measuring approximate 4.2 x 1.8 cm. This favors an intramuscular hematoma. 4. These findings were called/faxed to the emergency department following dictation. ACT 112: Negative or not required by law. Electronically signed by: Pj Purdy M.D. 05/29/2022 7:19 AM
[2022-05-29] MEDS: CITALOPRAM 20 MG TAB PO SCH (07:44)
[2022-05-29] MEDS: PIPERACILLIN/TAZOBACTAM 3.375 GM in DEXTROSE 5% 100 ML IV SCH ×2 (07:44→15:55)
[2022-05-29] MEDS: ACETAMINOPHEN 1,000 MG/100 ML VIAL IV PRN ×2 (13:57→21:38)
[2022-05-29] MEDS: traZODone HCL 50 MG TAB PO SCH (20:21)
[2022-05-30] MEDS: MoRPHine SULFATE 4 MG/ML 1 ML CARP\\VIAL IV PRN ×5 (03:07→20:35)
[2022-05-30] MEDS: LACTATED RINGER'S 1,000 ML IV SCH ×2 (03:08→13:35)
--- NOTE | 2022-05-30 05:43 | Surgery Progress Note ---
Date of Service May 30, 2022 Assessment & Plan (1) Abdominal pain: Plan: The patient's CAT scan has been reread by our in-house radiology. The following has been noted: Complex fluid noted in the abdomen and pelvis concerning for hemoperitoneum. No evidence of arterial extravasation was noted. Trace pneumoperitoneum was noted in the upper abdomen Left anterior lateral abdominal wall shows a heterogeneous collection measuring 4.2 x 1.8 cm, favoring an intramuscular hematoma Continue liquids for the present time with consideration of advancing his diet later today Continue IV fluids until certain oral intake is adequate Analgesics will be provided Antiemetics will be provided Continue antibiotics in form of Zosyn as patient was taking Augmentin as an outpatient We will repeat urinalysis due to patient's noted urinary complaints. It is likely that the patient's abdominal pain are likely due to the fluid collection noted in his abdomen along with the intramuscular hematoma. Additional recommendations be forthcoming based on his clinical course as it unfolds Will use SCDs for DVT prevention, no chemical means until certain he will not require any further procedures He will be a level 1 full code Admission and Anticipated Discharge Date Admission Date: May 29, 2022 Supervising Physician Co-Signing Physician Notes As per Tio Álvarez physician assistant sales center manager The patient stating that he has significant amount of loose stools diarrhea in nature He did not have any diarrhea before surgery but after his laparoscopic appendectomy he was sent home on amoxicillin for 5 days At this point we will check a C. difficile Very hard to make a decision regarding what actually is going on in his abdomen not having all the records and path reports from another institution A CAT scan most likely shows postoperative bleed the only concern that I have although clinically he does not show any signs of peritonitis is that he had small amount of pneumoperitoneum 9 days postop Subjective Patient is resting comfortably in bed. He continues to complain of some generalized abdominal pain, similar to what caused his presentation the emergency department. In addition the patient reports some mild dysuria. He denies any nausea or vomiting. He is tolerating liquids without difficulty. He notes his appetite has improved and he wishes more to eat. Physical Exam Gastrointestinal (Abdomen): Abdomen is soft and nondistended. It is nonrigid. Bowel sounds are present. Surgical incisions are healing well. There is generalized pain with palpation. Results & Data ([facility]) Vital Signs (Past 12 Hours) Vital Signs Temp Pulse Resp BP Pulse Ox 05/29/22 22:41 36.8 C 54 L 18 113/66 97 PG Care Time/CCT Total # of Minutes Spent Total Time Spent with Patient: Total time spent is greater than 50% in coordination of care (as documented) at patient's floor/unit and/or counseling patient: Coding Level of Care Code 93165 Subseq Hosp Care Lvl 1 Diagnoses Abdominal pain R10.9
[2022-05-30] MEDS: PIPERACILLIN/TAZOBACTAM 3.375 GM in DEXTROSE 5% 100 ML IV SCH ×3 (07:56→16:38)
[2022-05-30] MEDS: ACETAMINOPHEN 1,000 MG/100 ML VIAL IV PRN ×2 (09:19→18:43)
[2022-05-30] MEDS: CITALOPRAM 20 MG TAB PO SCH (09:22)
[2022-05-30 09:42] LABS: Appearance Urine Clear (Clear); Bilirubin Urine Negative (Negative); Blood Urine Negative (Negative); Color Urine Yellow; Glucose Urine UA Negative (Negative); Ketones Urine Trace (Negative); Leukocyte Esterase Urine Negative (Negative); Nitrite Urine Negative (Negative); Protein Urine Negative (Negative); Specific Gravity Urine 1.016 (1.000-1.030); Urobilinogen Urine Positive (Negative)
[2022-05-30] MEDS: traZODone HCL 50 MG TAB PO SCH (22:24)
[2022-05-31] MEDS: PIPERACILLIN/TAZOBACTAM 3.375 GM in DEXTROSE 5% 100 ML IV SCH ×3 (00:54→16:24)
[2022-05-31] MEDS: LACTATED RINGER'S 1,000 ML IV SCH ×2 (00:54→10:43)
[2022-05-31] MEDS: MoRPHine SULFATE 4 MG/ML 1 ML CARP\\VIAL IV PRN ×5 (02:50→23:53)
--- NOTE | 2022-05-31 06:37 | Surgery Progress Note ---
Date of Service May 31, 2022 Assessment & Plan (1) Abdominal pain: Plan: 05/31/22 POD#12 (he thinks he had surgery on July 19 at [place]) We do not have the path findings on the appendix or his postoperative care after surgery At this point I am concerned that the possibility that the hematoma and free air that was seen on CAT scan on admission may be reflecting development of an intra-abdominal pelvic abscess We will repeat the laboratory this morning (he is a bit tachycardic this morning) afebrile and likely repeat a CT scan of the abdomen and pelvis with contrast We will try to get records from [place] regarding the CAT scan when he first went in for his appendix the path findings and postoperative care The patient's CAT scan has been reread by our in-house radiology. The following has been noted: Complex fluid noted in the abdomen and pelvis concerning for hemoperitoneum. No evidence of arterial extravasation was noted. Trace pneumoperitoneum was noted in the upper abdomen Left anterior lateral abdominal wall shows a heterogeneous collection measuring 4.2 x 1.8 cm, favoring an intramuscular hematoma Continue liquids for the present time with consideration of advancing his diet later today Continue IV fluids until certain oral intake is adequate Analgesics will be provided Antiemetics will be provided Continue antibiotics in form of Zosyn as patient was taking Augmentin as an outpatient We will repeat urinalysis due to patient's noted urinary complaints. It is likely that the patient's abdominal pain are likely due to the fluid collection noted in his abdomen along with the intramuscular hematoma. Additional recommendations be forthcoming based on his clinical course as it unfolds Will use SCDs for DVT prevention, no chemical means until certain he will not require any further procedures He will be a level 1 full code Admission and Anticipated Discharge Date Admission Date: May 29, 2022 Subjective Overall feels not much improvement since admission he had some diarrhea which resolved in fact last night he had a semiformed stool he feels like he has p ressure down in the pelvic area when he tries to urinate and sensation on the rectum He stated he ate actually 1 of solid food yesterday was really not nauseated Physical Exam Physical Exam: Is alert coherent laying in bed comfortably at this time no nausea no abdominal pain but did receive some morphine about 3 hours ago Very thin gentleman with the abdomen is easily appreciated with generalized guarding the left lower quadrant trocar site without any drainage around that there is some fullness consistent with the CT scan findings of likely hematoma at the drain site the trocar sites supraumbilically and suprapubic area healing well suture still intact Results & Data ([facility]) Vital Signs (Past 12 Hours) Vital Signs Temp Pulse Resp BP Pulse Ox O2 Del Method 05/30/22 20:00 Room Air 05/30/22 22:28 36.7 C 102 H 14 100/62 90 Room Air Laboratory Results Reordered for this morning pending PG Care Time/CCT Total # of Minutes Spent Total Time Spent with Patient: Total time spent is greater than 50% in coordination of care (as documented) at patient's floor/unit and/or counseling patient: Coding Level of Care Code None Diagnoses Abdominal pain R10.9
[2022-05-31 06:56] LABS: Basophils # (auto) 0.05 K/uL (0-0.2); Basophils % (auto) 0.9 %; Eosinophils # (auto) 0.11 K/uL (0-0.50); Eosinophils % (auto) 1.9 %; Hematocrit (blood only) 31.2 % (40.1-51.0); Hemoglobin 10.5 g/dl (14.0-18.0); Immature Granulocytes # (auto) 0.02 K/uL (0.00-0.02); Immature Granulocytes % (auto) 0.3 %; Lymphocytes # (auto) 1.31 K/uL (1.2-3.4); Lymphocytes % (auto) 22.4 %; Mean Corpuscular Hemoglobin 30.5 pg (25.0-34.0); Mean Corpuscular Hgb Conc 33.7 g/dL (32.0-36.0); Mean Corpuscular Volume 90.7 fL (80.0-100.0); Mean Platelet Volume 9.7 fL (9.4-12.4); Monocytes # (auto) 0.65 K/uL (0.24-0.82); Monocytes % (auto) 11.1 %; Neutrophils % (auto) 63.4 %; Platelet Count 466 K/uL (130-400); RDW Coefficient of Variation 12.8 % (11.5-14.5); Red Blood Count 3.44 M/uL (4.63-6.08); White Blood Count 5.84 K/ul (4.8-10.8)
[2022-05-31 07:22] LABS: Anion Gap 5 (3-11); BUN Creatinine Ratio 14.9 (10-20); Blood Urea Nitrogen 11 mg/dl (6-23); Calcium 9.3 mg/dl (8.5-10.1); Carbon Dioxide 32 mmol/L (21-32); Chloride 102 mmol/L (98-107); Creatinine Clr Calc Pharmacy 136.5 ml/min; Est GFR (African American) > 150.0 ml/min; Est GFR (Non-African American) 133.7 ml/min; Glucose 73 mg/dl (70-99(Fasting)); Potassium 4.1 mmol/L (3.5-5.1); Sodium 139 mmol/L (136-145)
[2022-05-31] MEDS: CITALOPRAM 20 MG TAB PO SCH (08:23)
[2022-05-31 10:59] LABS: Alanine Aminotransferase 30 U/L (7-52); Albumin Level 3.7 gm/dl (3.4-5.0); Alkaline Phosphatase 43 U/L (34-104); Aspartate Aminotransferase 22 U/L (13-39); Bilirubin,Total 1.3 mg/dl (0.2-1.0); Total Protein 6.2 gm/dl (6.0-8.3)
[2022-05-31] MEDS: ACETAMINOPHEN 1,000 MG/100 ML VIAL IV PRN (16:04)
[2022-05-31] MEDS: traZODone HCL 50 MG TAB PO SCH (21:25)
[2022-06-01] MEDS: PIPERACILLIN/TAZOBACTAM 3.375 GM in DEXTROSE 5% 100 ML IV SCH ×2 (00:16→15:30)
[2022-06-01] MEDS: LACTATED RINGER'S 1,000 ML IV SCH (04:45)
--- NOTE | 2022-06-01 06:38 | Surgery Progress Note ---
Date of Service June 01, 2022 Assessment & Plan (1) Abdominal pain: Plan: I reviewed the initial CAT scan with radiologist yesterday specifically asking if the fluid that was seen could be an enteric contents since her initial CAT scan he still had a residual air (although not significant) sub diaphragmatic area on the right and it was felt that this was all residual from surgery and consistent with a pneumoperitoneum We repeated the labs yesterday his white count is normal there is no left shift his hemoglobin is pretty well stabilized his liver function tests are all normal in fact the bilirubin when he first came in was 1.7 now was down to 1.4 Patient is still requiring some morphine periodically Discussed with the patient that at this time we will repeat the CT scan of the abdomen pelvis and pending those results most likely the patient could be discharged today and to follow-up with his surgeon At this time we will DC the morphine and go from p.o. analgesics (2) Hemoperitoneum: Admission and Anticipated Discharge Date Admission Date: May 29, 2022 Subjective Patient is still complaining of abdominal pain I asked him specifically if that is the same intensity first came in and he said pretty much so He has a sensation to defecate but really nothing materialized this Still has some urinary pressure but no burning or frequency He tolerated a regular diet yesterday and his bowel movements are solidifying Physical Exam Physical Exam: Hard to read patient's laying in bed comfortably asleep but easily awakened Sclera is nonicteric oral mucosa moist The abdomen the incisions without any drainage suture still intact no redness more tender in the left lower quadrant the area that looks like may been a hematoma the rest of the abdomen generalized guarding but no tenderness Results & Data ([facility]) Vital Signs (Past 12 Hours) Vital Signs Temp Pulse Resp BP Pulse Ox O2 Del Method 05/31/22 21:00 Room Air 05/31/22 22:49 36.7 C 58 L 16 108/63 98 Room Air PG Care Time/CCT Total # of Minutes Spent Total Time Spent with Patient: Total time spent is greater than 50% in coordination of care (as documented) at patient's floor/unit and/or counseling patient: Coding Level of Care Code 43293 Subseq Hosp Care Lvl 3 Diagnoses Abdominal pain R10.9 Hemoperitoneum K66.1
[2022-06-01] MEDS ORDERED: IBUPROFEN 600 MG TAB PO PRN (06:39)
[2022-06-01] MEDS ORDERED: OPTIRAY 300 100mL IV ONE (09:12)
[2022-06-01] MEDS ORDERED: ACETAMINOPHEN 325 MG TAB PO PRN (10:16)
--- NOTE | 2022-06-01 13:45 | CT Scan Report ---
CT abd pelvis oral and IV con CLINICAL HISTORY: f/u hemoperitoneum TECHNIQUE: Helical axial images of the abdomen and pelvis were obtained and displayed. Automated dose lowering techniques and/or adjustment according to patient size were utilized for this exam. This e xam was performed with intravenous contrast. CT DOSE: 307.78 mGycm COMPARISON: Comparison is made to CT abdomen pelvis 05/29/2022 FINDINGS: Lower chest: No acute abnormality Liver: Unremarkable. No focal lesions are seen. Gallbladder and biliary tree: No calcified gallstones. Normal caliber wall. No intra- or extrahepatic biliary ductal dilation. Pancreas: Unremarkable, no focal lesions. Spleen: Unremarkable. Adrenals: Unremarkable. Kidneys and ureters: Unremarkable. Bladder: Mild thickening of the gallbladder wall is likely reactive. Reproductive organs: Unremarkable. Bowel: Unremarkable appearance of the bowel. The appendix is normal. Lymph nodes Retroperitoneal: Unremarkable. Pelvic: Unremarkable. Mesenteric: Unremarkable. Peritoneum: Hyperdense material is again seen in the pelvis and lower peritoneum, now with more promi nent enhancing del angel across much of the surface. Vessels: Unremarkable. Abdominal wall: Intramuscular hematoma in the left abdominal wall again seen. Bones: Unremarkable. IMPRESSION: 1. Redemonstration of complex fluid collection in the lower perineum and pelvis compatible with pneu moperitoneum. In the interval, it has become more organized. No gas collection is seen to suggest gas producing infection. 2. Intramuscular hematoma is again seen in the left abdominal musculature. ACT 112: Negative or not required by law. Electronically signed by: Dann Hwang M.D. 06/01/2022 1:42 PM
[2022-06-01] MEDS: CITALOPRAM 20 MG TAB PO SCH (15:30)
--- NOTE | 2022-06-02 14:51 | Discharge Summary ---
Date of Service June 02, 2022 Admission HPI Per Admitting Provider This is a 21-year-old male who underwent a laparoscopic appendectomy [facility] in [place], [place]. The patient notes that his surgery was approximately 1-1/2 weeks ago on May 19. Patient says that his initial surgical course was uneventful and he was discharged home. It is noteworthy mention that the patient was discharged home on oral Augmentin and he continues to take this medication and still has several doses to take. Patient notes that he has had continued generalized abdominal pain since his surgery. He says he was seen by his surgeon and no specific interventions were undertaken. He was told by the surgeon that one of the stitches may have been impinging on a nerve. He continued to have persistent pain so approximately 2 days ago the patient was seen in the emergency department at [facility]. According to the patient and his mother no interventions were undertaken and no x-rays were performed. The patient continued to have persistent abdominal pain so he p resented to the emergency department at [facility] this evening. Since surgery, the patient denies any nausea or vomiting. He notes that he has been tolerating a diet. He notes that his bowels have moved since his surgery. He does not note any modifying factors of the pain other than that is worse with certain movements. He does not note any radiation of the pain. In the emergency department [facility] the patient has had labs and imaging which I independent reviewed. A CBC showed a white blood cell count of 10.9. Hemoglobin and hematocrit were 12.0 and 36.1. Platelet count was 530,000. Chemistry profile showed sodium, potassium, and creatinine were normal. His BUN had a slight elevation at 25. His total bilirubin was elevated 1.7 and his ALT was elevated at 69 but alkaline phosphatase was normal. There is no elevation of his lipase. And AST was unable to be performed. Urinalysis showed 10-30 white blood cells per high-power field with no bacteria and trace leukocyte Estrace. No nitrites were noted on the study. A CT scan of the abdomen pelvis was performed that showed A large amount of free fluid layering in the pelvis with an ill-defined density at the region of the appendectomy suture line. There is no definite loculated collection. There is no contrast extravasation on the study. There was a locule of gas in the olivier hepatitis with no bowel obstruction. At the time of my interview the patient was initially sleeping. He was in no distress but did have continued abdominal pain. Principal Diagnosis Pelvic hematoma Left rectus hematoma Discharge Exam Constitutional WD/WN, vitals as above Gastrointestinal (Abdomen) Inspection/Auscultation: + abdominal wall ecchymosis; abdomen not distended Percussion/Palpation: + abdomen tender (LLQ) and abdomen soft Discharge Data Allergies Allergy/AdvReac Type Severity Reaction Status Date / Time No Known Allergies Allergy Unverified 05/28/22 23:36 Consultations 05/29/22 02:50 ED Decision to Admit Stat 05/29/22 03:03 HIM [Consult Health Information Management] Stat Ordered Studies 05/28/22 21:06 CT abd pelvis oral and IV con Urgent 06/01/22 06:40 CT Abd and Pelvis [CT abd pelvis oral and IV con] Routine Hospital Course (1) Hemoperitoneum: 21 y/o male presented to the ER with abdominal pain 9 days after laparoscopic appendectomy at another facility. White count was 10,[address] showed pelvic collection/hemoperitoneum. He also had left abdominal wall hematoma. He was admitted to the surgical service for pain control and IV antibiotics to rule out developing pelvic abscess. By the next morning his white count had normalized. He was able to tolerate a diet. He remained afebrile but had some occasional tachycardia. After he was rehydrated his Hgb remained stable at 10. On day 4 CT was repeated and showed similar fluid/blood collections. Clinically he was doing better and was stable for discharge home on Augmentin. He will follow-up with his surgeon in [place] in 1 week. Total Time Total Time Spent Total Time Spent (In Minutes): 15 Discharge Plan Discharge Items Patient Disposition: Home - Self-Care Reason For Visit: ABDOMINAL PAIN Discharge Diagnosis: abdominal pain h/o laparoscopic appendectomy Activity: Per Instructions section Lifting: No more than 25 pounds Bathing Comment: may shower Exercise/Sports: Wait until after follow-up appointment Driving/Machine Use: Resume 1 day after discharge Non-emergency contact: Surgeon Call non-emergency contact if: you have any medication questions, your symptoms worsen, your pain is not controlled, your pain is concerning for you, you have a fever, your temperature is above 101.5, your wound has increased redness, your wound has increased drainage and your wound pain has increased Follow-up/Referrals: Samuel Arce MD, FACS [Surgeon] - (Please follow up with your surgeon within 1 week. You do not need to follow up with Dr. Arce, but may call our office if any questions/concerns) Lanre Conde D.O. [Primary Care Provider] - Diet: Regular Addtl Attending Provider Instructions: Please complete the full course of antibiotic prescribed to you. Augmentin tablet twice daily tablet through to 06/11/22 You may purchase Tylenol and/or Ibuprofen over the counter if needed for pain control -Tylenol 650mg orally every 4-6 hours, as needed for pain. Do not exceed >3grams of Acetaminophen within a 24 hour time period. -Ibuprofen 200mg-600mg orally every 6-8 hours, as needed for pain. Take with food Pending Studies at Discharge: No Stand-Alone Forms: [facility] The [employer], Smoking Cessation Medications and DC Order Prescriptions: New amoxicillin-pot clavulanate 875-125 mg tablet 1 tab PO BID Qty: 20 0RF Continued trazodone 50 mg tablet 50 mg PO HS citalopram 20 mg tablet 20 mg PO QAM Discontinued amoxicillin-pot clavulanate 875-125 mg tablet 1 tab PO Q12 Rx Instructions: ordered 05/21/22 take for 8 days Discharge Orders: Discharge Order (Routine); Ordered 06/01/22 Ordered By: Cherry Youngblood/Other Patient Handouts: Abdominal Pain, Managing Post-Op Pain at Home Admission Data Admit Date/Time: 05/29/22 02:53 Attending Provider: Samuel Arce Admit Provider: Samuel Arce Primary Care Provider: Lanre Conde Other Providers: Samuel Arce Other Interventions: Discharge Summary Assessment (RN) Last Done: 06/01/22 16:30 Coding Level of Care Code D/C DAY MANAGEMENT <30 MINS Diagnoses Hemoperitoneum K66.1
== END 2022-06-01 16:35 | disposition home or self-care (01) ==
LOC: ED 19:20 → 3W 19:20